=== PATIENT | male | born 1990 | race African-American/Black ===

== ENCOUNTER 2020-03-27 08:28 | Emergency (ER) | payer SELFPAY ==
[~2020-03-27] VITALS: Ht 185.4 cm; Wt 70.3 kg
[2020-03-27 08:40] VITALS: Ht 185.4 cm; Wt 70.3 kg
[2020-03-27 10:24] LABS: BASOPHIL % 0.3 % (0.2-1.5); PLATELET COUNT 294 x10^3mcL (152-348); RED CELL DISTRIBUTION WIDTH 12.7 % (12.1-16.2)
[2020-03-27 10:30] LABS: CALCIUM 10.2 mg/dL (8.5-10.1); CARBON DIOXIDE 22.2 mmol/L (21-32); CHLORIDE SERUM 102 mmol/L (98-107); CREATININE SERUM 1.4 mg/dL (0.7-1.3); GFR1 > 60 mL/min; GLUCOSE SERUM 90 mg/dL (74-106); POTASSIUM SERUM 3.6 mmol/L (3.5-5.1); SODIUM SERUM 140 mmol/L (136-145)
[2020-03-27 10:42] LABS: ALBUMIN 4.8 g/dL (3.4-5.0); ALKALINE PHOSPHATASE 69 U/L (46-116); ALT/SGPT 25 U/L (16-63); AST/SGOT 22 U/L (15-37); BILIRUBIN TOTAL 0.8 mg/dL (0.20-1.00); LIPASE 219 IU/L (73-393)
[2020-03-27 10:43] LABS: TOTAL PROTEIN, SERUM 8.7 g/dL (6.4-8.2)
[2020-03-27 11:37] LABS: microscopic required? NO
[2020-03-27 13:34] LABS: UA SPECIFIC GRAVITY 1.025 (1.005-1.035); urine erythrocyte NEGATIVE (NEGATIVE)
[2020-03-27 14:05] VITALS: BP 113/52
== END 2020-03-27 14:05 | disposition home or self-care (01) ==
LOC: ED 08:28
PROVIDERS: Emergency Medicine
DX: F12.99 Cannabis use, unspecified with unspecified cannabis-induced disorder (principal); R10.13 Epigastric pain; R11.2 Nausea with vomiting, unspecified
CPT/HCPCS: J1630; J2060; J3490; J7030